=== PATIENT | female | born 1945 | race Caucasian/White ===

== ENCOUNTER 2022-03-21 11:13 | Emergency (ER) | payer MEDICARE, OTHER ==
[~2022-03-21] VITALS: Ht 160 cm; Wt 111.1 kg
[~2022-03-21 11:13] MED LIST: ALDACTONE25 MG PO; BENEFIBER152 GM PO; BYDUREON2 MG SC; COLACE 2-IN-11 EACH PO; ELIQUIS5 MG PO; FENOFIBRATE160 MG PO; FISH OIL 1,2001 EACH PO; FLOVENT HF120 PUFFS/ INH; GABAPENTIN100 MG PO; HYDROCODON-ACE1 EAC2 PO; KLOR-CON M2020 MEQ PO; LASIX40 MG PO; LEVEMIR VI100 UNITS/ SC; LIPITOR 10MG TA10 MG PO; LYRICA150 MG PO; NOVOLOG VI100 UNIT/1 SC; OXYCODONE-ACET1 EAC1 PO; PRINIVIL10 MG PO; PROBIOTIC1 EACH PO; SINGULAIR10 MG PO; TRAMADOL HCL50 MG PO; ULTRAM50 MG PO; VITAMIN D32000 UNIT PO; VOLTAREN ARTHRI20 GM TOP
[2022-03-21] MEDS ORDERED: LEVOCETIRIZINE D5 MG PO (11:39)
[2022-03-21] MEDS ORDERED: BUMETANIDE2 MG PO (11:39)
[2022-03-21] MEDS ORDERED: OMNIPOD1 EACH SC (11:40)
[2022-03-21] MEDS ORDERED: OMEPRAZOLE 20MG20 MG PO (11:40)
[2022-03-21 12:43] LABS: BASOPHIL 0.3 % (0-2); EOSINOPHIL 0.8 % (0-7); HCT 36.5 % (37.0-47.0); HGB 11.8 g/dl (12.5-16.0); LYMPHOCYTE 32.9 % (15-48); MCH 30.8 pg (25.0-31.0); MCHC 32.3 g/dL (32.0-36.0); MCV 95.3 fL (78.0-100.0); MONOCYTE 19.5 % (0-12); MPV 13.9 fL (6.0-9.5); NRBC 0; PLT 181 K/uL (150-400); RBC 3.83 M/uL (4.20-5.40); RDW 14.4 % (11.5-14.0); WBC 3.7 K/uL (4.0-10.5)
[2022-03-21 13:14] LABS: ALBUMIN 3.2 g/dL (3.4-5.0); BILIRUBIN - TOTAL 0.7 mg/dL (0.2-1.0); BUN/CREAT RATIO (CALC) 29.9 RATIO; CREATININE 2.24 mg/dL (0.51-0.95); GLOBULIN (CALCULATION) 3.4 g/dL; POTASSIUM 4.5 mmol/L (3.5-5.1); TOTAL PROTEIN 6.6 g/dL (6.4-8.2)
== END 2022-03-21 18:43 | disposition home or self-care (01) ==
LOC: FER 11:13
PROVIDERS: Emergency Medicine
DX: I11.0 Hypertensive heart disease with heart failure (principal); I50.9 Heart failure, unspecified; E11.9 Type 2 diabetes mellitus without complications; I48.91 Unspecified atrial fibrillation; Z79.4 Long term (current) use of insulin; Z79.01 Long term (current) use of anticoagulants; Z79.899 Other long term (current) drug therapy
CPT/HCPCS: 36415; 36600; 71045; 80053; 82803; 83880; 84484; 85025; 93005; 93971; 94760